=== PATIENT | female | born 1950 | race Caucasian/White ===

== ENCOUNTER 2018-01-19 09:18 | Emergency (ER) | payer MEDICARE, BC ==
[~2018-01-19] VITALS: Ht 170.2 cm; Wt 109.0 kg
[~2018-01-19 09:18] MED LIST: ATOR20TA66 PO; BUSP15TA3 PO; CARV25TA2 PO; DILT120C62 PO; DOCU-28 PO; FURO-150 PO; LISI10TA4 PO; SERT25TA5 PO; WARF-55 PO; WARF4TAB69 PO
[2018-01-19] MEDS ORDERED: acetaminophen 325mg tablet PO ONE (10:50)
[2018-01-19] MEDS ORDERED: ondansetron 4mg rapidly disintigrating tab PO ONE (10:50)
[2018-01-19] MEDS ORDERED: ibuprofen tablet 400 MG TABLET PO ONE (10:50)
[2018-01-19 12:36] VITALS: BP 137/96
== END 2018-01-19 12:39 | disposition home or self-care (01) ==
LOC: ER 09:19
DX: R51 Headache (principal); I48.91 Unspecified atrial fibrillation; I10 Essential (primary) hypertension; Z88.0 Allergy status to penicillin; Z79.01 Long term (current) use of anticoagulants; Z79.899 Other long term (current) drug therapy
CPT/HCPCS: 70450; 93005; 99284

== ENCOUNTER 2018-08-31 11:29 | Outpatient (CLI) | payer MEDICARE, BC ==
[2018-08-31] VITALS (21 sets, daily range): BP systolic 98–155; BP diastolic 51–88
== END 2018-08-31 23:59 | disposition home or self-care (01) ==
LOC: CARD DIAG 11:29
PROVIDERS: ATTEND Internal Medicine Cardiovascular Disease
DX: R42 Dizziness and giddiness (principal); I10 Essential (primary) hypertension; Z87.891 Personal history of nicotine dependence
CPT/HCPCS: 93660